=== PATIENT | male | born 1965 | race Caucasian/White ===

== ENCOUNTER 2022-03-08 10:10 | Day surgery (SDC) | payer OTHER, MEDICAID ==
[2022-03-02 14:35] LABS: BASOPHILS # (AUTO) 0.1 X10'3 (0-0.2); BASOPHILS % (AUTO) 1.1 % (0-1); EOSINOPHILS # (AUTO) 0.2 X10'3 (0-0.9); EOSINOPHILS % (AUTO) 3.1 % (0-6); LYMPHOCYTES # (AUTO) 2.8 X10'3 (1.1-4.8); MEAN CORPUSCULAR HEMOGLOBIN 29.9 PG (27.0-31.0); MEAN CORPUSCULAR HGB CONC 34.1 g/dL (33.0-36.5); MEAN CORPUSCULAR VOLUME 87.6 FL (78-98); MEAN PLATELET VOLUME 6.4 FL (7.4-10.4); MONOCYTES # (AUTO) 0.7 X10'3 (0-0.9); MONOCYTES % (AUTO) 10.4 % (2-12); NEUTROPHILS # (AUTO) 3.1 X10'3 (1.8-7.7); NEUTROPHILS % (AUTO) 44.4 % (42-75); PRE OP HEMATOCRIT 45.4 % (42.0-52.0); PRE OP HEMOGLOBIN 15.5 g/dL (14.0-17.9); PRE OP PLATELET COUNT 248 X10'3 (140-440); RED BLOOD COUNT 5.18 X10'6 (4.70-6.10); RED CELL DISTRIBUTION WIDTH 14.9 % (11.5-14.5)
[2022-03-02 14:53] LABS: ALBUMIN 4.2 G/DL (3.4-5.0); ALBUMIN/GLOBULIN RATIO 1.1 (1.1-1.5); ALKALINE PHOSPHATASE 60 IU/L (46-116); BLOOD UREA NITROGEN 14 MG/DL (7-18); BUN/CREATININE RATIO 12.4 (5.4-32.0); CALCIUM 9.5 MG/DL (8.5-10.1); CHLORIDE 104 MMOL/L (99-107); CREATININE 1.13 MG/DL (0.60-1.10); PRE OP ALT 34 U/L (30-65); PRE OP ANION GAP 11 (8-16); PRE OP AST 28 U/L (10-37); PRE OP BILIRUB, TOTAL 1.1 MG/DL (0.0-1.0); PRE OP GLUCOSE 85 MG/DL (70-104); PRE OP POTASSIUM 4.2 MMOL/L (3.4-5.1); PRE OP SODIUM 144 MMOL/L (135-145); TOTAL CARBON DIOXIDE 28.6 MMOL/L (24-32); eGFR 67 ML/MIN
[~2022-03-08] VITALS: Ht 172.7 cm; Wt 95.0 kg
[~2022-03-08 10:10] MED LIST: FEBU40TA3 PO; clindamycin-Cleocin 900mg/D5W 50 ML IV ONE; famotidine 20mg tablet PO ONE; ringers solution, lacted 1,000 ML IV SCH
[2022-03-08 11:02] VITALS: BP 134/92
[2022-03-08] MEDS ORDERED: BUPIVAcaine 0.5% inj/PF 30 ML ONE (11:32)
[2022-03-08] MEDS ORDERED: LIDOcaine 1% 30ml preserv. free vial ONE (11:32)
[2022-03-08] MEDS ORDERED: sevoflurane 250ml liquid IH ONE (11:56)
[2022-03-08] MEDS ORDERED: ePHEDrine 50MG/ML INJ. ONE (11:56)
[2022-03-08] MEDS ORDERED: morphine 2 MG/ML inj. syringe IV PRN (12:05)
[2022-03-08] MEDS ORDERED: proCHLORperazine 10 MG/2 ml inj IV PRN (12:05)
[2022-03-08] MEDS ORDERED: labetalol 20mg/4ml (5mg/ml) syringe IV PRN (12:05)
[2022-03-08] MEDS ORDERED: hydrALAZINE 20mg/ml inj. IV PRN (12:05)
[2022-03-08] MEDS ORDERED: meperidine/PF 25mg/ml syringe IV PRN ×3 (12:05)
[2022-03-08] MEDS ORDERED: morphine 4 MG/ML inj SYRINge IV PRN (12:05)
[2022-03-08] MEDS ORDERED: ondansetron/PF 4mg/2ml inj IV PRN (12:05)
[2022-03-08] MEDS ORDERED: ringers solution, lacted 1,000 ML IV SCH (12:05)
[2022-03-08] MEDS ORDERED: ketorolac trometh. 30mg/ml inj. IV ONE (12:05)
[2022-03-08] MEDS ORDERED: fentaNYL /PF 50mcg/ml 5ml ampule ONE (12:06)
[2022-03-08] MEDS ORDERED: midazolam 1 mg/ML 2ml injection ONE (12:06)
[2022-03-08] MEDS ORDERED: BUPIVAcaine 0.5% inj/PF 30 ml vial IJ ONE (12:22)
[2022-03-08] MEDS ORDERED: ondansetron/PF 4mg/2ml inj ONE (12:34)
[2022-03-08] MEDS ORDERED: LIDOcaine 1%/PF 5ML 10 MG/ML VIAL ONE ×2 (12:34)
[2022-03-08] MEDS ORDERED: rocuronium 10mg/ml inj IV ONE (12:34)
[2022-03-08] MEDS ORDERED: propofol inj 20 ML IV ONE (12:34)
[2022-03-08] MEDS ORDERED: dexamethasone sod phosphate 4mg/ml inj. ONE (12:34)
[2022-03-08] MEDS ORDERED: neostigmine methylsulfate 1 MG/ML 10ml vial ONE (12:57)
[2022-03-08] MEDS ORDERED: glycopyrrolate 0.2mg/ml inj ONE (13:05)
[2022-03-08 13:15] VITALS: BP 137/95
--- NOTE | 2022-03-08 13:15 | NUR ---
Received from OR via [facility], accompanied by Anesthesiologist SHERWIN and report given by Anesthesiolgist. PT DROWSY, OXYGENATING WELL ON 10 LPM O2 VIA MASK, NO RESP DISTRESS NOTED. DENIES NAUSEA OR PAIN AT THIS TIME. 3 ABD TROCAR SITES WITH LG BANDAIDS, CDI. VSS
[2022-03-08 13:20] VITALS: BP 125/93
[2022-03-08 13:30] VITALS: BP 119/90
[2022-03-08] MEDS ORDERED: oxyCODONE/APAP 5-325mg tablet PO PRN (13:30)
[2022-03-08 13:40] VITALS: BP 120/80
[2022-03-08 13:50] VITALS: BP 108/74
--- NOTE | 2022-03-08 14:10 | NUR ---
TRANSFER TO [facility] ROOM 246A. PATIENT UNABLE TO VOID AT THIS TIME. VSS. DRESSINGS INTACT. BED LOW, CALL LIGHT PRESENT AND 2 RAILS UP. RN PRESENT TO ACCEPT CARE OF PATIENT AND REPORT HAS BEEN CALLED. ALL QUESTIONS ANSWERED TO VILMA MUELLER. Addendum: 03/08/22 at 1431 by Rodriguez Sal RN Amended: Links added.
--- NOTE | 2022-03-08 14:31 | NUR ---
ASSUME CARE OF PT FROM CLIFTON MUELLER IN PACU. PT TRANSFERED TO [facility] ROOM 246A. PT PROVIDED WITH 1000 MLS WATER, IV HOOKED UP WITH LR RUNNING AT 150MLS/HR. PT GIVEN TORADOL AND PERCOCET 3/325. PT RESTING IN ROOM 246A WITH AT BEDSIDE.
[2022-03-08] MEDS ORDERED: LIDOcaine 2% 10ml TOPICAL JELLY (Urojet) MM ONE (17:05)
--- NOTE | 2022-03-08 17:45 | NUR ---
PT UNABLE TO VOID. GRECO CATH PLACED WITH 16 ESTONIAN. GRECO CATH HAD 450 URINE OUTPUT. PT HAS MET ALL DC CRITERIA. IV DC'D WITH CANULA INTACT. PT GIVEN A 10CC SYRINGE WITH GRECO CATHETER CARE INSTRUCTIONS AND CLEANING WIPES PROVIDED. PER DR RODRIGUEZ PT TO HAVE REMOVE GRECO CATH ON SATURDAY MORNING. DC INSTRUCTIONS REVIEWED WITH PT AND WHO VERBALIZED UNDERSTANDING AND NO FURTHER QUESTIONS AT THIS TIME. PT WAS WHEELED OUT OF THE HOSPITAL IN WHEELCHAIR WHERE WAS WAITING IN PRIVATE VEHICLE TO TAKE PT HOME. Addendum: 03/08/22 at 1758 by Patito Stanley RN, RN Amended: Links added.
== END 2022-03-08 17:45 | disposition home or self-care (01) ==
LOC: PAS 10:10
PROVIDERS: ATTEND Surgery
DX: K40.90 Unilateral inguinal hernia, without obstruction or gangrene, not specified as recurrent (principal); Z88.0 Allergy status to penicillin; Z88.6 Allergy status to analgesic agent; Z88.8 Allergy status to other drugs, medicaments and biological substances; Z79.899 Other long term (current) drug therapy
CPT/HCPCS: 36415; 49650; 80053; 82948; 85025; 93005; C1781; J1100; J1885; J2250; J2405; J2704; J2710; J3010; J3490; J7030; J7120; S0020; Z7506; Z7508; Z7512; A4215; A4314; A4618